=== PATIENT | female | born 1960 | race Caucasian/White ===

== ENCOUNTER 2017-11-28 13:54 | Day surgery (SDC) | payer BC ==
[2017-11-28] MEDS ORDERED: LIDOCAINE 100 MG SYRINGE (16:32)
[2017-11-28] MEDS ORDERED: PROPOFOL 20 ML (16:32)
== END 2017-11-28 19:27 | disposition home or self-care (01) ==
LOC: GIL 13:54
DX: D12.2 Benign neoplasm of ascending colon (principal); D12.3 Benign neoplasm of transverse colon; K62.1 Rectal polyp; E11.9 Type 2 diabetes mellitus without complications; I10 Essential (primary) hypertension; E78.5 Hyperlipidemia, unspecified
CPT/HCPCS: 45380; 82962; 88305

== ENCOUNTER 2017-12-21 21:35 | Emergency (ER) | payer BC ==
[2017-12-21] MEDS: HYDROCODONE/APAP (5/325) TAB PO (23:44)
== END 2017-12-22 01:48 | disposition home or self-care (01) ==
LOC: FTE 12-22 01:48
DX: M25.561 Pain in right knee (principal); I10 Essential (primary) hypertension; Z79.84 Long term (current) use of oral hypoglycemic drugs
CPT/HCPCS: 73562; 99283-25